=== PATIENT | female | born 1950 | race Caucasian/White ===

== ENCOUNTER 2018-06-03 11:56 | Day surgery (SDC) | payer OTHER, SELFPAY ==
[2018-06-03 12:47] VITALS: BP 135/82; PULSE 67; RESP 15; TEMP 37.1; O2SAT 100; BMI 20.1
[2018-06-03] MEDS: SODIUM CHLORIDE 0.9% 1,000 ML 200 ML IV (12:59)
[2018-06-03] MEDS: fentaNYL 250 MCG/5 ML INJ IV (13:29)
[2018-06-03] MEDS: MIDAZOLAM 5 MG/5 ML VIAL IV (13:30)
[2018-06-03 13:55] VITALS: BP 113/65; PULSE 71; RESP 16; TEMP 36.8; O2SAT 97
[2018-06-03 14:25] VITALS: BP 138/75; PULSE 63; RESP 16; TEMP 36.3; O2SAT 100
--- NOTE | 2018-06-03 14:57 | HP_ITS ---
DATE OF SERVICE: 06/03/2018 HISTORY OF PRESENT ILLNESS: A 67-year-old white female patient coming in or screening colonoscopy. She's had at least 3 prior colonoscopies, has had polyps, I think the most recent time was in the year 1999, so 18 years ago. She denies melena or hematochezia. No abdominal pain. PAST MEDICAL HISTORY: Denies diabetes, hypertension, or heart disease. ALLERGIES: SULFA. MEDICATIONS: Takes no current medications that are other than [id number]. REVIEW OF SYSTEMS: System review is negative. PHYSICAL EXAMINATION VITAL SIGNS: Blood pressure 135/82, heart rate 67. HEENT: Ears, nose, and throat are normal. NECK: No adenopathy. CHEST: Lungs are clear with no rales or wheezes. HEART: Regular rhythm. No murmur. ABDOMEN: Soft. No organomegaly. No tenderness. : Rectal exam will be done at the time of colonoscopy. DIAGNOSIS: Screening colonoscopy. Marlen Wilkinson - [place]/ doc#: [id number]/job#: [id number] dd: 06/03/2018 13:25:00 dt: 06/03/2018 14:29:00 DICTATING MD/COPIES TO: Parviz Neil MD COPIES MNE: LUZ
--- NOTE | 2018-06-03 15:07 | OP_ITS ---
DATE OF SERVICE: 06/03/2018 PREOP DIAGNOSIS: Screening colonoscopy. POSTOP DIAGNOSIS: Normal colon. PROCEDURE: Colonoscopy to the cecum. SURGEON: Parviz Neil MD DESCRIPTION OF PROCEDURE: Patient was brought to the endoscopic room, properly identified during surgical pause, given conscious sedation using Versed and fentanyl. Flexible fiber-optic colonoscope inserted transanally to the cecum. There are no tumors. No polyps. No ulcerations. Very scant sigmoid diverticulosis is noted without diverticulitis. Otherwise the exam is entirely normal. Procedure was very well tolerated. Marlen Wilkinson - /jagdeep/ doc#: [id number]/job#: [id number] dd: 06/03/2018 13:54:00 dt: 06/03/2018 15:03:00 DICTATING MD/COPIES TO: Parviz Neil MD COPIES MNE: LUZ
== END 2018-06-03 14:48 | disposition home or self-care (01) ==
PROVIDERS: PCP Internal Medicine; Visit Provider Surgery
PROC: 0DJD8ZZ Inspection of Lower Intestinal Tract, Via Natural or Artificial Opening Endoscopic (ICD-10-PCS; CPT 45378; principal; 2018-06-03 13:45)
DX: Z86.010 Personal history of colon polyps (principal)
CPT/HCPCS: G0121; J2250; J3010

== ENCOUNTER → 2019-02-11 18:45 | Outpatient (CLI) | payer OTHER, SELFPAY ==
--- NOTE | 2019-02-11 18:47 | DI.MRI.S_ITS ---
PROCEDURE: MR FOOT LT WO/W CON INDICATIONS: SOFT TISSUE MASS.LEFT FOREFOOT PAIN TECHNIQUE: Noncontrast sagittal T1 spin echo and T2 fast spin echo with fat saturation, long-axis T1 spin echo and T2 fast spin echo with fat saturation; short-axis T1 spin echo, proton density fast spin echo, and T2 fast spin echo with fat saturation through the forefoot. Post-contrast short axis, long axis, and sagittal T1 spin echo with fat saturation through the forefoot. COMPARISON: None. FINDINGS: Image quality: Diagnostic. Bones and joints: No acute fracture, dislocation, or suspicious osseous lesion is identified involving the osseous structures of the midfoot or forefoot. There are moderate degenerative changes of the 1st metatarsophalangeal joint without associated hallux valgus deformity evident. Mild edema involving the medial sesamoid of the great toe is incidentally noted. Additional areas of mild degenerative change are noted involving the midfoot and forefoot joints. No significant joint effusions are appreciated. Soft tissues: A marker was placed at the site of the patient's area of concern, which is noted to be located along the dorsal aspect of the forefoot between the heads of the 1st and 2nd metatarsals. At this location, there is an elongated structure that demonstrates increased T2 signal and intermediate T1 signal, measuring 1.4 x 0.8 x 0.6 cm, which tracks to the level of the 1st metatarsal phalangeal joint. Postcontrast images demonstrate mild peripheral enhancement without internal enhancement, compatible with a ganglion or synovial cyst. No solid masses are identified. Otherwise, the soft tissues of the midfoot and forefoot are within normal limits. The flexor and extensor tendons appear to be within normal limits. No significant atrophy involving the intrinsic muscles of the foot are appreciated. IMPRESSION: 1. The patient's palpable abnormality correlates with a small ganglion/synovial cyst that appears to be arising from the 1st metatarsal phalangeal joint. No suspicious imaging characteristics are evident. 2. Moderate degenerative changes of the 1st metatarsophalangeal joint. No definite hallux valgus. 3. Edema of the medial sesamoid probably is degenerative. Please correlate clinically to exclude sesamoiditis. Dictated by: Brian Green M.D. on 02/12/2019 at 14:05 Approved by: Brian Green M.D. on 02/12/2019 at 14:08
== END ==
PROVIDERS: PCP Internal Medicine; Visit Provider Podiatrist
DX: R22.42 Localized swelling, mass and lump, left lower limb (principal)
CPT/HCPCS: 73720; A9579

== ENCOUNTER 2020-12-05 08:34 | Emergency (ER) | payer OTHER, SELFPAY ==
[2020-12-05 08:35] VITALS: BP 175/81; PULSE 66; RESP 16; TEMP 37; O2SAT 96; BMI 20.7
--- NOTE | 2020-12-05 08:50 | PC.NURSE ---
pt does normally wear corrective lenses, pt denies blurry vision.
[2020-12-05] MEDS: PROPARACAINE 0.5% OPHTH SOL 1 DROPS EYE-RIGHT (08:56)
[2020-12-05] MEDS: FLUORESCEIN 1 MG STRIP EYE-RIGHT (08:56)
[2020-12-05] MEDS: TET,DIPH,PERTUSS(ACELL),VAC/PF 0.5 ML SYRINGE IM (08:57)
--- NOTE | 2020-12-05 09:37 | ED.EYEPROB ---
HPI - Eye Problem General Chief complaint: Eye Problems Stated complaint: injury to right eye Time Seen by Provider: 12/05/20 08:40 Source: patient Mode of arrival: Ambulatory Limitations: no limitations History of Present Illness HPI Narrative: 70-year-old female nonsmoker with noncontributory medical history presents this morning with a chief complaint of an eye injury just prior to her arrival. She was reaching to grab a tool in her garage when it was falling and when she leaned forward she accidentally hit herself in the eye with the handle. She was not wearing glasses and does not wear contacts. She has pain over her lateral eye but denies any vision change. She does have some painful ocular motion but feels like it is the anterior eye. She denies any visual field cut. Her tetanus will need to be updated. She is otherwise well and free of complaint MD chief complaint: eye pain, eye redness and eye injury Onset (ago): minute(s) Onset description: sudden Location: right eye Eye Symptoms: burning Place: home Mechanism: direct trauma Severity: mild If Pain, Quality: sharp and aching Treatments Prior to Arrival: none Related Data Patient tetanus UTD: No Home Medications Medication Instructions Recorded Confirmed CHOLECALCIFEROL (VITAMIN D3) 5,000 iu PO QDAY #0 05/02/12 (VITAMIN D) Turmeric (#TURMERIC) QDAY #0 05/02/12 ibuprofen 600 mg PO QIDP #0 05/02/12 loratadine [Claritin] 10 mg PO QDAYP #0 05/02/12 MULTIMINERAL/MULTIVITAMIN (MULTI 2 tab PO QDAY #0 05/03/12 VITAMIN/MINERAL SUPPLEMENT) [Coconut Oil] 1 tbls PO QDAY #0 05/03/12 citalopram [Celexa] 20 mg PO HS #0 05/03/12 Previous Rx's Medication Instructions Recorded Trazodone Hydrochloride (#DESYREL) 225 mg PO HS #135 12/05/12 ofloxacin 1 drp EYE-RIGHT Q2H #5 ml 12/05/20 sulfacetamide sodium 1 drp EYE-RIGHT Q2H #5 ml 12/05/20 Allergies Allergy/AdvReac Type Severity Reaction Status Date / Time ampicillin Allergy Unknown Verified 12/05/20 09:11 Sulfa (Sulfonamide Allergy Unknown Verified 12/05/20 09:11 Antibiotics) sulfamethoxazole Allergy Unknown Verified 12/05/20 09:11 [From Bactrim] trimethoprim [From Bactrim] Allergy Unknown Verified 12/05/20 09:11 Review of Systems Constitutional Constitutional: Denies fever(s) and Denies headache(s) Eyes Eyes: Reports irritation, Denies itchy eyes, Reports eye pain and Reports requires corrective lenses ENT Ears, Nose, Mouth, and Throat: Denies headache(s) Cardiovascular Cardiovascular: Denies chest pain and Denies dyspnea Respiratory Respiratory: Denies cough and Denies dyspnea Gastrointestinal Gastrointestinal: Denies nausea and Denies vomiting Musculoskeletal Musculoskeletal: Denies abnormal gait Neurologic Neurologic: Denies abnormal gait and Denies headache(s) Hematologic/Lymphatic Hematologic/Lymphatic: Denies easy bruising Allergic/Immunologic Allergic/Immunologic: Denies itchy eyes Patient History Social History household members: none Smoking Status: Never smoker Smoking Status: Never smoker alcohol intake frequency: holidays/special occasions only Substance Use Type: does not use Exam Narrative Exam Narrative: GEN: AOx3 and in mild distress, clearly uncomfortable, covering her right eye in a dark room EYES: Pupils are equal, round, and reactive to light and accommodation. No evidence of hyphema, there is subconjunctival hemorrhage in the lateral right eye. Viewed under Wood's lamp and no obvious foreign body, upper lid everted. Near complete resolution of discomfort with proparacaine. Fluorescein used under UV lamp and corneal abrasion noted at the 6 o'clock position inferior to the pupil overlying the iris. No abnormal findings on funduscopic exam. No evidence of globe rupture Extraoccular muscles are intact bilaterally. CHEST: Lungs are clear to auscultation bilaterally and free of wheezes, rales, or rhonchi. Heart rate is regular rhythm, there are no murmurs, clicks, rubs, or gallops. There is no chest wall tenderness. ABD: Abdomen is soft and nontender. There is no guarding or rebound. Bowel sounds are normal in all 4 quadrants. There is no mass or organomegaly. EXT: Full painless ROM of all extremities with no loss of sensation or strength. SKIN: Warm, pink, and dry. No erythema or rash Initial Vital Signs Initial Vital Signs: Vital Signs Temperature 98.6 F 12/05/20 08:35 Pulse Rate 66 12/05/20 08:35 Respiratory Rate 16 12/05/20 08:35 Blood Pressure 175/81 H 12/05/20 08:35 Pulse Oximetry 96 12/05/20 08:35 Course Orders Ordered: Discontinued Medications Diphtheria/Tetanus/Acell Pertussis (Tet,Diph,Pertuss(Acell),Vac/Pf 0.5 Ml Syringe) 0.5 ml IM .ONCE ONE Stop: 12/05/20 08:41 Last Admin: 12/05/20 08:57 Dose: 0.5 ml Documented by: BTONER Fluorescein Sodium (Fluorescein 1 Mg Strip) 1 mg EYE-RIGHT NOW ONE Stop: 12/05/20 08:41 Last Admin: 12/05/20 08:56 Dose: 1 mg Documented by: BTONER Proparacaine HCl (Proparacaine 0.5% Ophth Jazzmine) 1 drops EYE-RIGHT NOW ONE Stop: 12/05/20 08:41 Last Admin: 12/05/20 08:56 Dose: 1 drop Documented by: BTONER Vital Signs Vital signs: Vital Signs - 8 hr 12/05/20 08:35 Temperature 98.6 F Pulse Rate 66 Respiratory Rate 16 Blood Pressure 175/81 H Pulse Oximetry 96 MDM - Eye Problem MDM Narrative Medical decision making narrative: Traumatic eye injury prior to arrival, no evidence of globe rupture a retrobulbar hematoma. No hyphema. Very minimal if any change in vision, no visual field cuts. No foreign body noted, near complete improvement in discomfort after proparacaine. Superficial abrasion noted. Extensive return precautions given. Patient has her own wireless cellular technician in [place] but was also given information to our local group in the event she is unable to get in with her doctor. Questions answered to her apparent satisfaction Discharge Plan Departure Patient Disposition: Home Clinical Impression: Corneal abrasion Qualifiers: Encounter type: initial encounter Laterality: right Qualified Code(s): S05.01XA - Injury of conjunctiva and corneal abrasion without foreign body, right eye, initial encounter Subconjunctival hemorrhage Qualifiers: Laterality: right Qualified Code(s): H11.31 - Conjunctival hemorrhage, right eye Instructions: Corneal Abrasion, DI for Subconjunctival Hemorrhage Activity Restrictions/Additional Instructions: *You have been diagnosed with [right eye corneal abrasion and subconjunctival hemorrhage] *What to do: *Please continue to take your regular medications as directed. [x ] New medication prescriptions sent to your pharmacy: [[facility] ] [x ] New medication given in ED: Diluted Proparacaine (0.05%) drops may be used every 30 minutes if needed for pain (1-2drops in right eye) *Please follow up with your wireless cellular technician, call for an appointment. Let them know you were seen in the Emergency Department and that we ask that you be seen in follow up. We will electronically transmit a record of today's note if your PCP is in our system *If you are unable to get in with your wireless cellular technician in the next few days I have included contact information for our group who will see people after emergency department visits *Return to Emergency Department if you should have any new, worsening or concerning symptoms, such as [increasing pain, visual field cuts or other bothersome symptoms Prescriptions: New sulfacetamide sodium 10 % drops 1 drp EYE-RIGHT Q2H Qty: 5 RF: 0 ofloxacin 0.3 % drops 1 drp EYE-RIGHT Q2H Qty: 5 RF: 0 No Action ibuprofen 600 MG tablet 600 mg PO QIDP Qty: 0 RF: 0 loratadine [Claritin] 10 MG tablet 10 mg PO QDAYP Qty: 0 RF: 0 CHOLECALCIFEROL (VITAMIN D3) (VITAMIN D) 5,000 iu PO QDAY Qty: 0 RF: 0 Turmeric (#TURMERIC) QDAY Qty: 0 RF: 0 citalopram [Celexa] 20 MG tablet 20 mg PO HS Qty: 0 RF: 0 MULTIMINERAL/MULTIVITAMIN (MULTI VITAMIN/MINERAL SUPPLEMENT) 2 tab PO QDAY Qty: 0 RF: 0 [Coconut Oil] 1 tbls PO QDAY Qty: 0 RF: 0 Trazodone Hydrochloride (#DESYREL) 225 mg PO HS Qty: 135 RF: 0 Referrals: Semaj Cardoza MD [Physician] - David Hill MD [Primary Care Provider] -
== END 2020-12-05 09:25 | disposition home or self-care (01) ==
PROVIDERS: Emergency Provider Emergency Medicine; PCP Internal Medicine
DX: S05.01XA Injury of conjunctiva and corneal abrasion without foreign body, right eye, initial encounter (principal); H11.31 Conjunctival hemorrhage, right eye; W22.8XXA Striking against or struck by other objects, initial encounter; Z23 Encounter for immunization
CPT/HCPCS: 90471; 99283; 90715

== ENCOUNTER → 2021-11-16 14:47 | Outpatient (CLI) | payer OTHER, SELFPAY ==
--- NOTE | 2021-11-16 | DI.US.S_ITS ---
PROCEDURE: US PELVIC COMPLETE INDICATIONS: PELVIC PAIN TECHNIQUE: Real-time scanning was performed of the pelvic organs, with image documentation. Additional endovaginal scanning was necessary due to incomplete visualization of the adnexal and endometrial structures by transabdominal scanning. COMPARISON: [facility], US, US PELVIC COMPLETE, 08/12/2021, 13:25. FINDINGS: Uterus: Uterus is anteverted and normal in size at 5.9 x 3.5 x 2.0 cm. The myometrium is homogeneous. The endometrium measures 1.9 mm combined thickness. Ovaries: The right ovary measures 2.9 x 2.0 x 1.5 cm. The left ovary is not visualized. There is a focus of heterogeneous echogenicity within the right ovary. It measures 9 x 12 x 12 mm. Other: No pathologic free abdominal or pelvic fluid. Mild appearance of slight increased dilated pelvic vasculature. IMPRESSION: Heterogeneous focus of echogenicity within the right ovary as above, this could represent a collapsing cyst. Mild appearance of increased pelvic vasculature. This could be related to pelvic congestion syndrome and recommend clinical correlation and cross-sectional imaging if clinically appropriate. We strive to produce accurate, complete, and clear reports of imaging services. To assist us in improving patient care, this report was composed using standard report templates and voice recognition software. Therefore, it may contain abnormal punctuation, insertions and/or omissions. Occasional wrong-word or sound-alike substitutions may occur. Though we review the report and make efforts to correct it, we do recommend that the report be read carefully in proper context to recognize any text inaccuracies. Dictated by: Cecile Correa M.D. on 11/16/2021 at 16:38 Approved by: Cecile Correa M.D. on 11/16/2021 at 16:41
== END ==
PROVIDERS: PCP Internal Medicine; Referring Provider Student in an Organized Health Care Education/Training Program; Visit Provider Student in an Organized Health Care Education/Training Program
DX: R10.2 Pelvic and perineal pain (principal)
CPT/HCPCS: 76830; 76856